=== PATIENT | female | born 2000 | race Caucasian/White ===

== ENCOUNTER 2019-10-30 07:53 | Outpatient (CLI) | payer OTHER ==
[2019-10-30 08:44] VITALS: BP 120/66; PULSE 95; RESP 16; TEMP 97.1
--- NOTE | 2019-11-02 09:45 | P.MSEPDOC ---
Presenting Problems - Arrival Data Date of Arrival on Unit: 10/30/19 Time of Arrival on Unit: 07:53 Mode of Transport: Ambulatory - Complaint OB-Reason for Admission/Chief Complaint: Rule Out PROM Medical History - Information : 1 Para: 0 Term: 0 : 0 Abortions: Spontaneous or Elective: 0 Number of Living Children: 0 - Gestational Age Gestational Age by LILIYA (wks/days): 28 Weeks and 2 Days Review of Systems - Review of Systems Constitutional: No problems Breast: No problems ENT: No problems Cardiovascular: No problems Respiratory: No problems Gastrointestinal: No problems Genitourinary: No problems Musculoskeletal: No problems Neurological: No problems Skin: No problems Vital Signs - Temperature Temperature: 97.1 F Temperature Source: Temporal Artery Scan - Pulse Right Pulse Rate: 95 Pulse Assessment Method: Automatic Cuff - Respirations Respiratory Rate: 16 Oxygen Delivery Method: Room Air O2 Sat by Pulse Oximetry: 98 - Blood Pressure Right Arm Blood Pressure: 120/66 Blood Pressure Mean: 84 Blood Pressure Source: Automatic Cuff Medical Screen Scoring (Pre) - Cervical Exam Dilation: Exam Deferred Effacement: Exam Deferred Membranes: Intact - Uterine Contractions Frequency: N/A - Maternal Vital Signs Maternal Temperature: N/A Maternal Blood Pressure: N/A Signs of Preeclampsia: N/A Maternal Respirations: N/A - Maternal Trauma Maternal Trauma: N/A - Assessment - Baby A Baseline FHR: 145 - Total Score - Baby A Total Score - Baby A: 0 - Total Score - Baby B Total Score - Baby B: 0 - Total Score - Baby C Total Score - Baby C: 0 - Level of Risk - Baby A Level of Risk - Baby A: Low (0-5) - Level of Risk - Baby B Level of Risk - Baby B: Low (0-5) - Level of Risk - Baby C Level of Risk - Baby C: Low (0-5) Physician Notification (Pre) - Physician Notified Physician Notified Date: 10/30/19 Physician Notified Time: 08:30 New Order Received: Yes - Notification Comment Comment: Once FHR displays 10x10 acels, pt may be DC home. Medical Screen Scoring (Post) - Cervical Exam Dilation: Exam Deferred Effacement: Exam Deferred Membranes: Intact - Uterine Contractions Frequency: N/A Duration: N/A Intensity: N/A - Maternal Vital Signs Maternal Temperature: N/A Signs of Preeclampsia: N/A Maternal Respirations: N/A - Pain Assessment Pain Scale Used: Numeric (1 - 10) Pain Intensity: 0 Pain Management Goal: 3 - Maternal Trauma Maternal Trauma: N/A - Assessment - Baby A Heart Rate: 140 Heart Rate - NICHD Category: Category I (Normal) = 0 NST: Reactive Position: N/A Station: N/A - Total Score Total Score - Baby A: 0 Total Score - Baby B: 0 Total Score - Baby C: 0 - Post Treatment Level of Risk Post Treatment Level of Risk - Baby A: Low (0-5) Post Treatment Level of Risk - Baby B: Low (0-5) Post Treatment Level of Risk - Baby C: Low (0-5) Disposition - Disposition OB Disposition: Discharge to home Discharge Date: 10/30/19 Discharge Time: 09:12 I agree with the RN Medical Screening Exam: Yes Risk & Benefit of care provided described in d/c instruction: Yes Diagnosis: FALSE LABOR, UNSPECIFIED
== END 2019-10-30 09:12 | disposition home or self-care (01) ==
LOC: FBPOP 07:53
PROVIDERS: ATTEND Obstetrics & Gynecology
DX: O47.03 False labor before 37 completed weeks of gestation, third trimester (principal); Z3A.28 28 weeks gestation of pregnancy
CPT/HCPCS: 84112; 99213

== ENCOUNTER 2019-12-13 11:22 | Outpatient (CLI) | payer BC, OTHER ==
[2019-12-13 13:34] VITALS: BP 127/74; PULSE 105; RESP 18; TEMP 97
--- NOTE | 2019-12-20 08:04 | P.MSEPDOC ---
Presenting Problems - Arrival Data Date of Arrival on Unit: 12/13/19 Time of Arrival on Unit: 11:30 Mode of Transport: Ambulatory - Complaint OB-Reason for Admission/Chief Complaint: Possible Onset of Labor Medical History - Information : 1 Para: 0 Term: 0 : 0 Abortions: Spontaneous or Elective: 0 Number of Living Children: 0 - Gestational Age Gestational Age by LILIYA (wks/days): 34 Weeks and 4 Days Review of Systems - Review of Systems Constitutional: No problems Breast: No problems ENT: No problems Cardiovascular: No problems Respiratory: No problems Gastrointestinal: No problems Genitourinary: No problems Musculoskeletal: No problems Neurological: No problems Skin: No problems Vital Signs - Temperature Temperature: 97.0 F Temperature Source: Temporal Artery Scan - Pulse Brachial Pulse Rate: 105 Pulse Assessment Method: Automatic Cuff - Respirations Respiratory Rate: 18 Oxygen Delivery Method: Room Air O2 Sat by Pulse Oximetry: 98 - Blood Pressure Right Arm Blood Pressure: 127/74 Blood Pressure Mean: 91 Blood Pressure Source: Automatic Cuff Medical Screen Scoring (Pre) - Cervical Exam Dilation: 0 cm = 0 Membranes: Intact - Uterine Contractions Frequency: N/A Duration: N/A Intensity: N/A - Maternal Vital Signs Maternal Temperature: N/A Maternal Blood Pressure: N/A Signs of Preeclampsia: N/A Maternal Respirations: N/A - Maternal Trauma Maternal Trauma: N/A - Assessment - Baby A Baseline FHR: 130 Heart Rate - NICHD Category: Category I (Normal) = 0 NST: Reactive Position: N/A Station: N/A - Total Score - Baby A Total Score - Baby A: 0 - Total Score - Baby B Total Score - Baby B: 0 - Total Score - Baby C Total Score - Baby C: 0 - Level of Risk - Baby A Level of Risk - Baby A: Low (0-5) - Level of Risk - Baby B Level of Risk - Baby B: Low (0-5) - Level of Risk - Baby C Level of Risk - Baby C: Low (0-5) Physician Notification (Pre) - Physician Notified Physician Notified Date: 12/13/19 Physician Notified Time: 13:30 New Order Received: Yes - Notification Comment Comment: Discharge home Physician Notification (Post) - Physician Notified Physician Notified Date: 12/13/19 Physician Notified Time: 13:30 Physician/Practitioner Notified:: Dr Gates Spoke With: Dr Gates New Order Received: Yes - Notification Comment Comment: D/C Home Disposition - Disposition OB Disposition: Discharge to home Discharge Date: 12/13/19 Discharge Time: 13:35 I agree with the RN Medical Screening Exam: Yes Risk & Benefit of care provided described in d/c instruction: Yes Diagnosis: PRIMARY INADEQUATE CONTRACTIONS
== END 2019-12-13 13:35 | disposition home or self-care (01) ==
LOC: FBPOP 11:22
PROVIDERS: ATTEND Obstetrics & Gynecology
DX: O62.0 Primary inadequate contractions (principal); Z3A.34 34 weeks gestation of pregnancy
CPT/HCPCS: 59025; 99213

== ENCOUNTER 2020-01-10 21:53 | Outpatient (CLI) | payer BC, OTHER ==
[2020-01-10 23:13] VITALS: BP 124/81; PULSE 98; RESP 16; TEMP 96.8
--- NOTE | 2020-03-28 16:14 | P.MSEPDOC ---
Presenting Problems - Arrival Data Date of Arrival on Unit: 01/10/20 Time of Arrival on Unit: 21:53 Mode of Transport: Ambulatory - Complaint OB-Reason for Admission/Chief Complaint: Rule Out SROM Comment: Physician in department, pt previously had called about c/o SROM at 1100am Medical History - Information : 1 Para: 0 Term: 0 : 0 Abortions: Spontaneous or Elective: 0 Number of Living Children: 0 - Gestational Age Gestational Age by LILIYA (wks/days): 38 Weeks and 4 Days - History Comment: none of the above Review of Systems - Review of Systems Constitutional: No problems Breast: No problems ENT: No problems Cardiovascular: No problems Respiratory: No problems Gastrointestinal: No problems Genitourinary: No problems Musculoskeletal: No problems Neurological: No problems Skin: No problems Vital Signs - Temperature Temperature: 96.8 F Temperature Source: Temporal Artery Scan - Pulse Right Supine Brachial Pulse Rate: 98 - Respirations Respiratory Rate: 16 Oxygen Delivery Method: Room Air O2 Sat by Pulse Oximetry: 98 - Blood Pressure Right Arm Supine Blood Pressure: 124/81 Blood Pressure Mean: 95 Blood Pressure Source: Automatic Cuff Medical Screen Scoring (Pre) - Cervical Exam Dilation: 1-3 cm = 1 Membranes: Intact - Uterine Contractions Frequency: > 5 minutes apart = 1 Intensity: N/A - Maternal Trauma Maternal Trauma: N/A - Assessment - Baby A Baseline FHR: 125 Heart Rate - NICHD Category: Category I (Normal) = 0 NST: Reactive Position: N/A Station: N/A - Total Score - Baby A Total Score - Baby A: 2 - Total Score - Baby B Total Score - Baby B: 2 - Total Score - Baby C Total Score - Baby C: 2 - Level of Risk - Baby A Level of Risk - Baby A: Low (0-5) - Level of Risk - Baby B Level of Risk - Baby B: Low (0-5) - Level of Risk - Baby C Level of Risk - Baby C: Low (0-5) Physician Notification (Pre) - Physician Notified Physician Notified Date: 01/10/20 Physician Notified Time: 22:32 New Order Received: Yes - Notification Comment Comment: Obtain reactive NST and discharge to home Disposition - Disposition OB Disposition: Discharge to home Discharge Date: 01/10/20 Discharge Time: 22:46 I agree with the RN Medical Screening Exam: Yes Risk & Benefit of care provided described in d/c instruction: Yes Diagnosis: FALSE LABOR AT OR AFTER 37 COMPLETED WEEKS OF GESTATION
== END 2020-01-10 22:50 | disposition home or self-care (01) ==
LOC: FBPOP 21:53
PROVIDERS: ATTEND Obstetrics & Gynecology
DX: O47.1 False labor at or after 37 completed weeks of gestation (principal); Z3A.38 38 weeks gestation of pregnancy
CPT/HCPCS: 59025; 84112; 99213

== ENCOUNTER 2020-01-16 20:35 | Outpatient (CLI) | payer BC, OTHER ==
[2020-01-16 22:12] VITALS: BP 140/65; PULSE 88; RESP 18; TEMP 97.3
--- NOTE | 2020-01-18 09:35 | P.MSEPDOC ---
Presenting Problems - Arrival Data Date of Arrival on Unit: 01/16/20 Time of Arrival on Unit: 20:35 Mode of Transport: Ambulatory - Complaint OB-Reason for Admission/Chief Complaint: Other Comment: loss of mucus plug, green discharge since 1930 Medical History - Information : 1 Para: 0 Term: 0 : 0 Abortions: Spontaneous or Elective: 0 Number of Living Children: 0 - Gestational Age Gestational Age by LILIYA (wks/days): 39 Weeks and 3 Days Review of Systems - Review of Systems Constitutional: No problems Breast: No problems ENT: No problems Cardiovascular: No problems Respiratory: No problems Gastrointestinal: No problems Genitourinary: No problems Musculoskeletal: No problems Neurological: No problems Skin: No problems Vital Signs - Temperature Temperature: 97.3 F Temperature Source: Temporal Artery Scan - Pulse Right Pulse Rate: 88 Pulse Assessment Method: Automatic Cuff - Respirations Respiratory Rate: 18 - Blood Pressure Right Arm Blood Pressure: 140/65 Blood Pressure Mean: 90 Blood Pressure Source: Automatic Cuff Medical Screen Scoring (Pre) - Cervical Exam Dilation: 1-3 cm = 1 Effacement: More than 50% = 2 Membranes: Intact - Uterine Contractions Frequency: > or = 36 weeks =2 Duration: > 40 seconds = 2 Intensity: N/A - Maternal Vital Signs Maternal Temperature: N/A Maternal Blood Pressure: N/A Signs of Preeclampsia: N/A Maternal Respirations: N/A - Maternal Trauma Maternal Trauma: N/A - Assessment - Baby A Baseline FHR: 130 Heart Rate - NICHD Category: Category I (Normal) = 0 NST: Reactive Position: N/A - Total Score - Baby A Total Score - Baby A: 7 - Total Score - Baby B Total Score - Baby B: 7 - Total Score - Baby C Total Score - Baby C: 7 - Level of Risk - Baby A Level of Risk - Baby A: Medium (6-9) - Level of Risk - Baby B Level of Risk - Baby B: Medium (6-9) - Level of Risk - Baby C Level of Risk - Baby C: Medium (6-9) Physician Notification (Pre) - Physician Notified Physician Notified Date: 01/16/20 Physician Notified Time: 21:26 - Notification Comment Comment: reviewed pts complaints, reactive fhts, cntrx pattern, SVE, vitals. no s/sx of SROM, no green discharge noted Disposition - Disposition OB Disposition: Discharge to home Discharge Date: 01/16/20 Discharge Time: 21:00 I agree with the RN Medical Screening Exam: Yes Risk & Benefit of care provided described in d/c instruction: Yes Diagnosis: RELATED CONDITIONS, UNSPECIFIED, THIRD TRIMESTER (?SROM)
== END 2020-01-16 21:50 | disposition home or self-care (01) ==
LOC: FBPOP 20:35
PROVIDERS: ATTEND Obstetrics & Gynecology
DX: O26.93 Pregnancy related conditions, unspecified, third trimester (principal); Z3A.39 39 weeks gestation of pregnancy
CPT/HCPCS: 59025; 99213

== ENCOUNTER 2020-01-17 16:25 | Outpatient (CLI) | payer BC, OTHER ==
[2020-01-17 18:28] VITALS: BP 124/74; PULSE 98; RESP 16; TEMP 98.8
--- NOTE | 2020-01-22 07:40 | P.MSEPDOC ---
Presenting Problems - Arrival Data Date of Arrival on Unit: 01/17/20 Time of Arrival on Unit: 16:25 Mode of Transport: Ambulatory - Complaint OB-Reason for Admission/Chief Complaint: Other Comment: pt arrived c/o palpations Medical History - Information : 1 Para: 0 Term: 0 : 0 Abortions: Spontaneous or Elective: 0 Number of Living Children: 0 - Gestational Age Gestational Age by LILIYA (wks/days): 39 Weeks and 4 Days Review of Systems - Review of Systems Constitutional: No problems Breast: No problems ENT: No problems Cardiovascular: No problems Respiratory: No problems Gastrointestinal: No problems Genitourinary: No problems Musculoskeletal: No problems Neurological: No problems Skin: No problems Vital Signs - Temperature Temperature: 98.8 F Temperature Source: Oral - Pulse Right Brachial Pulse Rate: 98 Pulse Assessment Method: Automatic Cuff - Respirations Respiratory Rate: 16 Oxygen Delivery Method: Room Air O2 Sat by Pulse Oximetry: 97 - Blood Pressure Right Arm Blood Pressure: 124/74 Blood Pressure Mean: 90 Blood Pressure Source: Automatic Cuff Medical Screen Scoring (Pre) - Cervical Exam Dilation: Exam Deferred Effacement: Exam Deferred Membranes: Intact - Uterine Contractions Frequency: > 5 minutes apart = 1 Duration: N/A Intensity: N/A - Maternal Vital Signs Maternal Temperature: N/A Maternal Blood Pressure: N/A Signs of Preeclampsia: N/A Maternal Respirations: N/A - Maternal Trauma Maternal Trauma: N/A - Assessment - Baby A Baseline FHR: 130 Heart Rate - NICHD Category: Category I (Normal) = 0 NST: Reactive Position: N/A - Total Score - Baby A Total Score - Baby A: 1 - Total Score - Baby B Total Score - Baby B: 1 - Total Score - Baby C Total Score - Baby C: 1 - Level of Risk - Baby A Level of Risk - Baby A: Low (0-5) - Level of Risk - Baby B Level of Risk - Baby B: Low (0-5) - Level of Risk - Baby C Level of Risk - Baby C: Low (0-5) Physician Notification (Pre) - Physician Notified Physician Notified Date: 01/17/20 Physician Notified Time: 17:50 New Order Received: Yes - Notification Comment Comment: pts vitals wnl reactive NST pt denies having any palpations while she was here. pulse ox 97% and regular. dr vega at bedside viewed strips and talked to pt. pt to return to L/D wednesday01/19/20 for a 6 am scheduled induction Disposition - Disposition OB Disposition: Discharge to home Discharge Date: 01/17/20 Discharge Time: 18:25 I agree with the RN Medical Screening Exam: Yes Risk & Benefit of care provided described in d/c instruction: Yes Diagnosis: PRIMARY INADEQUATE CONTRACTIONS
== END 2020-01-17 18:25 | disposition home or self-care (01) ==
LOC: FBPOP 16:25
PROVIDERS: ATTEND Obstetrics & Gynecology
DX: O62.9 Abnormality of forces of labor, unspecified (principal); Z3A.39 39 weeks gestation of pregnancy
CPT/HCPCS: 59025; 99213

== ENCOUNTER 2020-01-19 05:55 | Inpatient (IN) | payer BC, OTHER ==
[2020-01-19] MEDS ORDERED: LIDOCAINE 0.5% (PF) 5 MG/ML (50 ML SDV) SQ PRN (06:14)
[2020-01-19] MEDS ORDERED: TERBUTALINE 1 MG/ML VIAL SQ PRN (06:14)
[2020-01-19] MEDS ORDERED: OXYTOCIN 10 UNIT/ML 1 ML VIAL IM PRN (06:14)
[2020-01-19] MEDS ORDERED: METHYLERGONOVINE 0.2 MG/ML 1 ML AMP IM PRN (06:14)
[2020-01-19] MEDS ORDERED: CARBOPROST TROMETHAMINE 250 MCG/ML 1 ML AMP IM PRN (06:14)
[2020-01-19] MEDS ORDERED: OXYTOCIN 30 UNITS/500 ML NS 30 UNIT in SALINE 1 500ML.BAG IV SCH (06:15)
[2020-01-19 07:10] LABS: Anisocytosis Slight; Basophils # (A) 0.1 k/uL (0-0.2); Basophils % (A) 0 %; Eosinophils # (A) 0.2 k/uL (0-0.7); Eosinophils % (A) 2 %; HCT 38.8 % (34.0-46.0); HGB 12.5 gm/dL (11.4-16.0); Lymphocytes # (A) 2.6 k/uL (1.0-4.8); Lymphocytes % (A) 19 %; MCH 26.6 pg (25.0-35.0); MCHC 32.3 g/dL (31.0-37.0); MCV 82.3 fL (80.0-100.0); Mean Platelet Volume 7.8; Monocytes # (A) 0.5 k/uL (0-1.0); Monocytes % (A) 4 %; Neutrophils # (A) 10.2 k/uL (1.3-7.7); Neutrophils % (A) 74 %; Platelet Count 249 k/uL (150-450); RBC 4.71 m/uL (3.80-5.40); RDW 16.9 % (11.5-15.5); WBC 13.7 k/uL (4.0-11.0)
[2020-01-19] MEDS: LACTATED RINGERS 1,000 ML IV SCH (07:16)
[2020-01-19] MEDS ORDERED: fentaNYL (PF) 50 MCG/ML 5 ML AMP ONE (11:02)
[2020-01-19] MEDS ORDERED: SODIUM CHLORIDE 0.9% 100 ML BAG ONE (11:02)
[2020-01-19] MEDS ORDERED: ROPIVACAINE 5MG/ML 20ML VIAL ONE (11:02)
[2020-01-19] MEDS ORDERED: diphenhydrAMINE 50 MG/ML 1 ML VIAL IVP PRN ×2 (14:28)
[2020-01-19] MEDS ORDERED: LANOLIN CREAM 5 GM TUBE TOPICAL PRN (14:28)
[2020-01-19] MEDS ORDERED: ACETAMINOPHEN TAB 325 MG TAB PO PRN (14:28)
[2020-01-19] MEDS ORDERED: diphenhydrAMINE 25 MG CAP PO PRN (14:28)
[2020-01-19] MEDS ORDERED: HYDROCORTISONE 2.5% RECTAL CREAM 30 GM TUBE RECTAL PRN (14:28)
[2020-01-19] MEDS ORDERED: SIMETHICONE 80 MG CHEWABLE PO PRN (14:28)
[2020-01-19] MEDS ORDERED: BENZOCAINE/MENTHOL SPRAY 1 GM/SPRAY AEROSOL TOPICAL PRN (14:28)
[2020-01-19] MEDS ORDERED: diphenhydrAMINE 50 MG CAP PO PRN (14:28)
[2020-01-19] MEDS ORDERED: ZOLPIDEM 5 MG TAB PO PRN (14:28)
[2020-01-19] MEDS ORDERED: OXYTOCIN 20 UNITS/1000 ML NS 1,000 ML IV SCH (14:30)
[2020-01-19] MEDS: IBUPROFEN 600 MG TAB PO PRN ×2 (16:53→23:37)
[2020-01-19] MEDS: SENNOSIDES-DOCUSATE SODIUM 1 EACH TAB PO SCH (19:33)
[2020-01-20] MEDS: LACTATED RINGERS 1,000 ML IV SCH (05:38)
[2020-01-20] MEDS: IBUPROFEN 600 MG TAB PO PRN ×2 (06:08→12:23)
[2020-01-20] MEDS: SENNOSIDES-DOCUSATE SODIUM 1 EACH TAB PO SCH (07:53)
[2020-01-20 08:15] LABS: Anisocytosis Slight; Basophils % (A) 0 %; Eosinophils # (A) 0.2 k/uL (0-0.7); Eosinophils % (A) 1 %; HCT 33.6 % (34.0-46.0); HGB 11.2 gm/dL (11.4-16.0); Lymphocytes # (A) 2.9 k/uL (1.0-4.8); Lymphocytes % (A) 18 %; MCH 27.2 pg (25.0-35.0); MCHC 33.3 g/dL (31.0-37.0); MCV 81.5 fL (80.0-100.0); Mean Platelet Volume 8.7; Monocytes # (A) 0.7 k/uL (0-1.0); Monocytes % (A) 4 %; Neutrophils # (A) 12.6 k/uL (1.3-7.7); Neutrophils % (A) 76 %; Platelet Count 225 k/uL (150-450); RBC 4.12 m/uL (3.80-5.40); RDW 17.1 % (11.5-15.5); WBC 16.6 k/uL (4.0-11.0)
[2020-01-20 08:39] VITALS: BP 107/64; PULSE 83; RESP 16; TEMP 98.7
--- NOTE | 2020-01-20 10:19 | P.HPOB ---
History of Present Illness H&P Date: 01/19/20 Chief Complaint: Induction of labor 19-year-old presents at 39 weeks and 6 days for induction of labor. Her cervix is 3 cm dilated, 70% effaced, and -2 station. She is junior irregularly. heart tones 135 with moderate variability and reactive. Review of Systems All systems: negative Constitutional: Denies chills, Denies fever Eyes: denies blurred vision, denies pain Ears, nose, mouth and throat: Denies headache, Denies sore throat Cardiovascular: Denies chest pain, Denies shortness of breath Respiratory: Denies cough Gastrointestinal: Denies abdominal pain, Denies diarrhea, Denies nausea, Denies vomiting Genitourinary: Denies dysuria, Denies hematuria Musculoskeletal: Denies myalgias Integumentary: Denies pruritus, Denies rash Neurological: Denies numbness, Denies weakness Psychiatric: Denies anxiety, Denies depression Endocrine: Denies fatigue, Denies weight change Past Medical History Past Medical History: No Reported History Additional Past Medical History / Comment(s): Obstetric history: This is her first she had care with me since the first trimester. Blood type is O+, and because negative, rubella immune, hepatitis B negative, RPR nonreactive, GBS negative. History of Any Multi-Drug Resistant Organisms: None Reported Past Surgical History: No Surgical Hx Reported Past Psychological History: No Psychological Hx Reported Smoking Status: Never smoker Past Alcohol Use History: None Reported Past Drug Use History: None Reported Medications and Allergies Home Medications Medication Instructions Recorded Confirmed Type Iron 1 tab PO DAILY 10/30/19 01/19/20 History Pnv,Calcium 72/Iron/Folic Acid 1 tab PO DAILY 10/30/19 01/19/20 History [ Plus Tablet] Allergies Allergy/AdvReac Type Severity Reaction Status Date / Time strawberry Allergy Rash/Hives Verified 01/19/20 06:13 Exam Osteopathic Statement: *. No significant issues noted on an osteopathic structural exam other than those noted in the History and Physical/Consult. Vital Signs Temp Pulse Resp BP Pulse Ox 01/20/20 08:00 98.7 F 83 16 107/64 01/20/20 04:00 98.0 F 84 18 132/81 95 01/20/20 00:00 98.5 F 94 16 133/81 97 01/19/20 20:00 98.0 F 102 H 18 124/93 96 01/19/20 17:25 118 H 18 124/75 97 01/19/20 15:36 98.4 F 96 14 117/62 01/19/20 15:05 98.0 F 103 H 16 130/63 01/19/20 14:36 97.8 F 107 H 16 112/61 01/19/20 14:21 125 H 16 112/63 01/19/20 14:06 117 H 16 109/61 01/19/20 13:51 115 H 16 135/65 01/19/20 13:36 96.8 F L 121 H 16 119/56 Intake and Output 01/19/20 01/20/20 01/20/20 22:59 06:59 14:59 Other: # Voids 1 1 1 Heart: Regular rate and rhythm Lungs: Clear to auscultation bilaterally Abdomen: Soft, nontender Extremities: Negative Homans sign Results Result Diagrams: 01/20/20 06:57 Abnormal Lab Results - Last 24 Hours (Table) 01/20/20 Range/Units 06:57 WBC 16.6 H (4.0-11.0) k/uL Hgb 11.2 L (11.4-16.0) gm/dL Hct 33.6 L (34.0-46.0) % RDW 17.1 H (11.5-15.5) % Neutrophils # 12.6 H (1.3-7.7) k/uL Assessment and Plan (1) Normal labor Current Visit: Yes Status: Acute Code(s): O80 - ENCOUNTER FOR FULL-TERM UNCOMPLICATED DELIVERY; Z37.9 - OUTCOME OF DELIVERY, UNSPECIFIED SNOMED Code(s): 78299069 Plan: 1. Induction of labor with amniotomy and Pitocin 2. Anticipate normal vaginal delivery
--- NOTE | 2020-01-20 10:20 | P.PROBDLV ---
Vaginal Delivery Note - . Vaginal Delivery Note: 19-year-old presents at 39 weeks and 6 days for induction of labor. Her cervix is 3 cm dilated, 70% effaced, and -2 station. She is junior irregularly. heart tones 135 with moderate variability and reactive. Pitocin was started. Amniotomy performed at 7:02 AM and clear fluid noted. When she was uncomfortable she had an epidural. Her cervix is completely dilated at 1313. She pushed, delivered viable female infant over intact perineum under epidural anesthesia at 1515. Head delivered OA, anterior shoulder delivered gentle downward guidance followed by posterior shoulder and rest of body. Nose and mouth bulb suctioned, cord clamped and cut, infant placed on mother's abdomen. Apgars 9, 9, weight 6 pounds. Placenta delivered spontaneously, intact with three-vessel cord at 1317. Vagina, cervix, and perineum were inspected. First-degree left lateral laceration and a right labial laceration were repaired with 3-0 Vicryl. Estimated blood loss 390 mL. Mother and baby in stable condition.
--- NOTE | 2020-01-20 10:22 | P.DS ---
Providers Date of admission: 01/19/20 05:55 Expected date of discharge: 01/20/20 Attending physician: Mariana Gates Primary care physician: Stated None - Discharge Diagnosis(es) (1) Normal labor Current Visit: Yes Status: Resolved (2) Normal vaginal delivery Current Visit: Yes Status: Acute Hospital Course: Patient presented for induction of labor. She underwent a normal vaginal delivery. Her course was uncomplicated. She'll be discharged home day #1 in stable condition follow-up with me in 6 weeks. Patient Condition at Discharge: Stable Plan - Discharge Summary New Discharge Prescriptions: New Ibuprofen [Motrin] 600 mg PO Q6HR PRN #30 tab PRN Reason: Mild Pain Or Fever >= 100.5 No Action Pnv,Calcium 72/Iron/Folic Acid [ Plus Tablet] 1 tab PO DAILY Iron 1 tab PO DAILY Discharge Medication List Iron 1 tab PO DAILY 10/30/19 [History] Pnv,Calcium 72/Iron/Folic Acid [ Plus Tablet] 1 tab PO DAILY 10/30/19 [History] Ibuprofen [Motrin] 600 mg PO Q6HR PRN #30 tab 01/20/20 [Rx] Follow up Appointment(s)/Referral(s): Mariana Gates DO [Doctor of Osteopathic Medicine] - 6 Weeks Discharge Disposition: HOME SELF-CARE
== END 2020-01-20 14:30 | disposition home or self-care (01) | DRG 807 ==
LOC: 4FBP 05:55
PROVIDERS: ADMIT Obstetrics & Gynecology; ATTEND Obstetrics & Gynecology
PROC: 3E033VJ Introduction of Other Hormone into Peripheral Vein, Percutaneous Approach (ICD-10-PCS; 2020-01-19)
PROC: 3E0R3BZ Introduction of Anesthetic Agent into Spinal Canal, Percutaneous Approach (ICD-10-PCS; 2020-01-19)
PROC: 10E0XZZ Delivery of Products of Conception, External Approach (ICD-10-PCS; principal; 2020-01-20)
PROC: 10907ZC Drainage of Amniotic Fluid, Therapeutic from Products of Conception, Via Natural or Artificial Opening (ICD-10-PCS; 2020-01-20)
PROC: 0HQ9XZZ Repair Perineum Skin, External Approach (ICD-10-PCS; 2020-01-20)
DX: O70.0 First degree perineal laceration during delivery (principal); Z37.0 Single live birth; Z3A.39 39 weeks gestation of pregnancy; Z79.899 Other long term (current) drug therapy; Z82.49 Family history of ischemic heart disease and other diseases of the circulatory system; Z83.3 Family history of diabetes mellitus; Z80.3 Family history of malignant neoplasm of breast; Z80.8 Family history of malignant neoplasm of other organs or systems
CPT/HCPCS: 85025; 86850; 86900; 86901

== ENCOUNTER 2020-01-26 20:06 | Emergency (ER) | payer BC, OTHER ==
[2020-01-26 20:12] VITALS: TEMP 98
[2020-01-26] MEDS ORDERED: SODIUM CHLORIDE 0.9% 1,000 ML IV ONE (20:26)
[2020-01-26] MEDS ORDERED: KETOROLAC 15 MG/ML 1 ML VIAL IVP STA (20:26)
--- NOTE | 2020-01-26 20:38 | ED ---
General Adult HPI <Tony Villalpando - Last Filed: 01/26/20 22:17> - General Source: patient, family Limitations: no limitations <Radha Maya - Last Filed: 01/26/20 23:53> - General Chief complaint: Headache Stated complaint: Headache Time Seen by Provider: 01/26/20 20:13 - History of Present Illness Initial comments: 19-year-old female presents to the emergency department tonight with complaints of headache that she describes as pressure between the temples, intermittently times one week, worsening this evening. Denies any visual changes, nausea, vomiting, or exacerbating or relieving factors. Reports feeling off balance today. Patient states she is one week . Reports she had a routine and uncomplicated spontaneous vaginal delivery with epidural. Patient denies any recent rash, fever, chills, cough, shortness of breath, chest pain, abdominal pain, diarrhea, constipation, numbness, tingling, dizziness, weakness, hematuria, dysuria, urinary urgency, urinary frequency, or any other complaints. (Radha Maya) - Related Data Home Medications Medication Instructions Recorded Confirmed Pnv,Calcium 72/Iron/Folic Acid 1 tab PO DAILY 10/30/19 01/26/20 [ Plus Tablet] Ferrous Sulfate [Feosol] 325 mg PO DAILY 01/26/20 01/26/20 Previous Rx's Medication Instructions Recorded Ibuprofen [Motrin] 600 mg PO Q6HR PRN #30 tab 01/20/20 Allergies Allergy/AdvReac Type Severity Reaction Status Date / Time strawberry Allergy Rash/Hives Verified 01/26/20 21:12 Review of Systems ROS Other: All systems not noted in ROS Statement are negative. <Tony Villalpando - Last Filed: 01/26/20 22:17> ROS Other: All systems not noted in ROS Statement are negative. <Radha Maya - Last Filed: 01/26/20 23:53> ROS Statement: Those systems with pertinent positive or pertinent negative responses have been documented in the HPI. Past Medical History Past Medical History: No Reported History Additional Past Medical History / Comment(s): Obstetric history: This is her f irst she had care with me since the first trimester. Blood type is O+, and because negative, rubella immune, hepatitis B negative, RPR nonreactive, GBS negative. History of Any Multi-Drug Resistant Organisms: None Reported Past Surgical History: No Surgical Hx Reported Past Psychological History: No Psychological Hx Reported Smoking Status: Never smoker Past Alcohol Use History: None Reported Past Drug Use History: None Reported <Radha Maya M - Last Filed: 01/26/20 23:53> General Exam Limitations: no limitations General appearance: alert, in no apparent distress Head exam: Present: atraumatic, normocephalic, normal inspection Eye exam: Present: normal appearance, PERRL, EOMI. Absent: scleral icterus, conjunctival injection, periorbital swelling ENT exam: Present: normal exam, mucous membranes moist Respiratory exam: Present: normal lung sounds bilaterally. Absent: respiratory distress, wheezes, rales, rhonchi, stridor Cardiovascular Exam: Present: normal rhythm, tachycardia, normal heart sounds. Absent: systolic murmur, diastolic murmur, rubs, gallop, clicks GI/Abdominal exam: Present: soft, normal bowel sounds. Absent: distended, tenderness, guarding, rebound, rigid Back exam: Present: normal inspection Neurological exam: Present: alert, oriented X3, CN II-XII intact Expanded Patient oriented to: Present: person, place, time Speech: Present: fluid speech Cranial nerves: EOM's Intact: Normal Motor strength exam: RUE: 5, LUE: 5, RLE: 5, LLE: 5 Eye Response: (4) open spontaneously Motor Response: (6) obeys commands Verbal Response: (5) oriented Psychiatric exam: Present: normal affect, normal mood Skin exam: Present: warm, dry, intact, normal color. Absent: rash <Radha Maya M - Last Filed: 01/26/20 23:53> Course Vital Signs 01/26/20 01/26/20 01/26/20 20:09 21:29 23:27 Temperature 98.0 F Pulse Rate 105 H 87 86 Respiratory 16 16 18 Rate Blood Pressure 142/86 142/95 138/92 O2 Sat by Pulse 98 100 98 Oximetry Medical Decision Making - Lab Data Result diagrams: 01/26/20 20:58 01/26/20 20:58 <Tony Villalpando - Last Filed: 01/26/20 22:17> - Lab Data Result diagrams: 01/26/20 20:58 01/26/20 20:58 - Radiology Data Radiology results: report reviewed, image reviewed <Radha Maya M - Last Filed: 01/26/20 23:53> - Medical Decision Making Patient was seen along with physician assistant statistician Nessa Maya. Patient is 19-year-old female she is 1 week presents with a headache. She reports that the headache is to her bifrontal region. She called [facility] and spoke with Dr. Cochran. Dr. Urrutia that she come to the emergency department. Patient's blood pressure when she arrived was 142/86. She was mildly tachycardic at 105, rest of vital signs within acceptable limits. Laboratory evaluation obtained. Patient has no elevation in her liver enzymes. She has mild leukocytosis of 15.0. Sightly secondary to stress. She does have 1+ proteinuria. She has greater than 182 red blood cells and greater than 182 white blood cells in the urine. Patient case was discussed with Dr. Cochran. He does not believe that patient's clinical presentation is consistent with preeclampsia. He goes on to say that patient's headache is likely from epidural. Patient be ordered for CT venogram to rule out venous sinus thrombos is. We also will monitor patient's blood pressures here in the emergency department. (Tony Villalpando) 19-year-old female patient presented to the emergency department today for evaluation of intermittent headache for the last week. Patient is reporting a pressure type headache to the frontal region. Physical examination was unremarkable. She is neurologically intact with no focal deficits. Labs reviewed and were unremarkable other than mild leukocytosis which is most likely reactive. Blood pressures were around the 140s over 80s to 90s on the department. She had no concerning laboratory findings are preeclampsia. As the patient is one week we did contact the [employer] [employer]PRES[employer] Dr. Urrutia and discussed the case with him. He is not concerned for preeclampsia at this time. He was concerned the patient's headache may be from the epidural so we did discuss the case with Dr. Garcia from Anesthesia who does not believe the reported symptoms are from the epidural and will not be performing a blood patch at this time. CT of the brain with contrast was obtained, shows no evidence for abnormalities or signs of venous sinus thrombosis. Upon reevaluation nayely gonzáles is resting comfortably in bed. Her symptoms are completely resolved. Blood pressure is now in the 130s over 80s. Patient will be discharged to follow-up with the [facility] [facility] for recheck in 1-2 days. Return parameters were discussed in detail. She verbalizes understanding and agrees with this plan. (Radha Maya) - Lab Data Lab Results 01/26/20 01/26/20 01/26/20 Range/Units 20:58 20:58 20:58 WBC 15.0 H (4.0-11.0) k/uL RBC 4.70 (3.80-5.40) m/uL Hgb 12.5 (11.4-16.0) gm/dL Hct 39.1 (34.0-46.0) % MCV 83.3 (80.0-100.0) fL MCH 26.7 (25.0-35.0) pg MCHC 32.0 (31.0-37.0) g/dL RDW 15.8 H (11.5-15.5) % Plt Count 362 (150-450) k/uL Neutrophils % 73 % Lymphocytes % 19 % Monocytes % 4 % Eosinophils % 2 % Basophils % 0 % Neutrophils # 11.0 H (1.3-7.7) k/uL Lymphocytes # 2.9 (1.0-4.8) k/uL Monocytes # 0.6 (0-1.0) k/uL Eosinophils # 0.4 (0-0.7) k/uL Basophils # 0.0 (0-0.2) k/uL Sodium 136 L (137-145) mmol/L Potassium 4.2 (3.5-5.1) mmol/L Chloride 106 (98-107) mmol/L Carbon Dioxide 23 (22-30) mmol/L Anion Gap 7 mmol/L BUN 9 (7-17) mg/dL Creatinine 0.62 (0.52-1.04) mg/dL Est GFR (CKD-EPI)AfAm >90 (>60 ml/min/1.73 sqM) Est GFR (CKD-EPI)NonAf >90 (>60 ml/min/1.73 sqM) Glucose 104 H (74-99) mg/dL Uric Acid 6.2 (3.7-7.4) mg/dL Calcium 9.6 (8.4-10.2) mg/dL Total Bilirubin 0.3 (0.2-1.3) mg/dL AST 16 (14-36) U/L ALT 12 (4-34) U/L Alkaline Phosphatase 111 (38-126) U/L Lactate Dehydrogenase 473 (313-618) U/L Total Protein 6.6 (6.3-8.2) g/dL Albumin 3.8 (3.5-5.0) g/dL Urine Color Yellow Urine Appearance Turbid H (Clear) Urine pH 6.0 (5.0-8.0) Ur Specific [place] 1.018 (1.001-1.035) Urine Protein 1+ H (Negative) Urine Glucose (UA) Negative (Negative) Urine Ketones Negative (Negative) Urine Blood Large H (Negative) Urine Nitrite Negative (Negative) Urine Bilirubin Negative (Negative) Urine Urobilinogen <2.0 (<2.0) mg/dL Ur Leukocyte Esterase Large H (Negative) Urine RBC >182 H (0-5) /hpf Urine WBC >182 H (0-5) /hpf Urine WBC Clumps Occasional H (None) /hpf Ur Squamous Epith Cells 11 H (0-4) /hpf Urine Mucus Occasional H (None) /hpf - Radiology Data CT brain with contrast was obtained. Report was reviewed in its entirety. Impression by Dr. Noguera shows negative computed tomography scan of the brain with contrast. No evidence of venous sinus thrombosis. (Radha Maya) Disposition <Tony Villalpando - Last Filed: 01/26/20 22:17> Is patient prescribed a controlled substance at d/c from ED?: No Time of Disposition: 23:42 <Radha Maya - Last Filed: 01/26/20 23:53> Clinical Impression: Headache, Elevated blood pressure, situational Disposition: HOME SELF-CARE Condition: Good Instructions (If sedation given, give patient instructions): Acute Headache (ED), Hypertension (ED) Additional Instructions: Increase fluids. Rest. Take Tylenol and Motrin for pain control. Follow-up with your [employer] [employer]ENT[facility]IVE for recheck as soon as possible. Keep a log of your blood pressures to take to the appointment. Return to the emergency department immediately for any new, worsening, or concerning symptoms. Referrals: None,Stated [Primary Care Provider] - 1-2 days
[2020-01-26 21:07] LABS: Basophils % (A) 0 %; Eosinophils # (A) 0.4 k/uL (0-0.7); Eosinophils % (A) 2 %; HCT 39.1 % (34.0-46.0); HGB 12.5 gm/dL (11.4-16.0); Lymphocytes # (A) 2.9 k/uL (1.0-4.8); Lymphocytes % (A) 19 %; MCH 26.7 pg (25.0-35.0); MCV 83.3 fL (80.0-100.0); Mean Platelet Volume 7.3; Monocytes # (A) 0.6 k/uL (0-1.0); Monocytes % (A) 4 %; Neutrophils % (A) 73 %; Platelet Count 362 k/uL (150-450); RDW 15.8 % (11.5-15.5)
[2020-01-26 21:14] LABS: Appearance,Urine Turbid (Clear); Bilirubin,Urine Negative (Negative); Blood,Urine Large (Negative); Color,Urine Yellow; Glucose,Urine (UA) Negative (Negative); Ketones,Urine Negative (Negative); Leukocyte Esterase,Urine Large (Negative); Mucus,Urine Occasional /hpf; Nitrite,Urine Negative (Negative); Protein,Urine 1+ (Negative); RBC,Urine >182 /hpf (0-5); Specific Gravity,Urine 1.018 (1.001-1.035); Squamous Epithelial Cell,Urine 11 /hpf (0-4); Urobilinogen,Urine <2.0 mg/dL (<2.0); WBC,Urine >182 /hpf (0-5)
[2020-01-26 21:23] LABS: ALT 12 U/L (4-34); AST 16 U/L (14-36); African American GFR (CKD) >90 (>60 ml/min/1.73 sqM); Albumin 3.8 g/dL (3.5-5.0); Alkaline Phosphatase 111 U/L (38-126); Anion Gap 7 mmol/L; Blood Urea Nitrogen 9 mg/dL (7-17); Calcium 9.6 mg/dL (8.4-10.2); Carbon Dioxide 23 mmol/L (22-30); Chloride 106 mmol/L (98-107); Glucose 104 mg/dL (74-99); LDH 473 U/L (313-618); Non-African American GFR(CKD) >90 (>60 ml/min/1.73 sqM); Potassium 4.2 mmol/L (3.5-5.1); Sodium 136 mmol/L (137-145); Total Bilirubin 0.3 mg/dL (0.2-1.3); Total Protein 6.6 g/dL (6.3-8.2); Uric Acid 6.2 mg/dL (3.7-7.4)
[2020-01-26] MEDS ORDERED: RX INFO: IV CONTRAST WAS GIVEN 1 EACH MISC MISCELLANE PRN (22:01)
--- NOTE | 2020-01-26 23:18 | CT ---
EXAMINATION TYPE: CT brain w con DATE OF EXAM: 01/26/2020 COMPARISON: None HISTORY: Headache, post x1 week. Venogram. CT DLP: 1084.4 mGycm Automated exposure control for dose reduction was used. CONTRAST: Performed with IV Contrast, patient injected with 100ml mL of Isovue 300. Ventricles and sulci appear normal. There is no mass effect nor midline shift. There is no sign of in tracranial hemorrhage. There is normal contrast opacification of the venous sinuses. There is no path ologic enhancement. Calvarium is intact. There is no evidence of cerebral edema. IMPRESSION: Negative CT scan of the brain with contrast. No evidence of venous sinus thrombosis.
[2020-01-26 23:30] VITALS: BP 138/92; PULSE 86; RESP 18
== END 2020-01-26 23:57 | disposition home or self-care (01) ==
LOC: EC 20:06
DX: R51 Headache (principal); R03.0 Elevated blood-pressure reading, without diagnosis of hypertension; R00.0 Tachycardia, unspecified; D72.829 Elevated white blood cell count, unspecified; F43.9 Reaction to severe stress, unspecified; R80.9 Proteinuria, unspecified; R31.9 Hematuria, unspecified; Z91.018 Allergy to other foods; Z79.899 Other long term (current) drug therapy
CPT/HCPCS: 36415; 80053; 83615; 84550; 85025; 81001; 87086; 70460; 99284; 96374; 96361 ×2; J1885; Q9967

== ENCOUNTER 2020-03-13 20:19 | Emergency (ER) | payer BC, OTHER ==
[2020-03-13 20:25] VITALS: PULSE 72; RESP 18
[2020-03-13 21:17] LABS: Basophils % (A) 0 %; Eosinophils # (A) 0.1 k/uL (0-0.7); Eosinophils % (A) 1 %; HCT 44.7 % (34.0-46.0); HGB 14.4 gm/dL (11.4-16.0); Lymphocytes % (A) 14 %; MCHC 32.3 g/dL (31.0-37.0); MCV 80.5 fL (80.0-100.0); Mean Platelet Volume 6.9; Monocytes # (A) 0.5 k/uL (0-1.0); Monocytes % (A) 4 %; Neutrophils % (A) 81 %; Platelet Count 421 k/uL (150-450); RBC 5.56 m/uL (3.80-5.40); WBC 14.8 k/uL (3.8-10.6)
[2020-03-13 21:28] LABS: ALT 20 U/L (4-34); AST 19 U/L (14-36); African American GFR (CKD) >90 (>60 ml/min/1.73 sqM); Albumin 4.7 g/dL (3.5-5.0); Alkaline Phosphatase 101 U/L (38-126); Anion Gap 8 mmol/L; Blood Urea Nitrogen 12 mg/dL (7-17); Calcium 10.1 mg/dL (8.4-10.2); Carbon Dioxide 25 mmol/L (22-30); Chloride 105 mmol/L (98-107); Glucose 121 mg/dL (74-99); Non-African American GFR(CKD) >90 (>60 ml/min/1.73 sqM); Potassium 4.5 mmol/L (3.5-5.1); Sodium 138 mmol/L (137-145); Total Bilirubin 0.5 mg/dL (0.2-1.3); Total Protein 7.7 g/dL (6.3-8.2)
--- NOTE | 2020-03-13 21:32 | XR ---
EXAMINATION TYPE: XR chest 2V DATE OF EXAM: 03/13/2020 COMPARISON: 11/15/2014 HISTORY: Short of breath TECHNIQUE: 2 views FINDINGS: Heart and mediastinum are normal. Lungs are clear. Diaphragm is normal. Bony thorax appears normal. IMPRESSION: Normal chest. No change.
--- NOTE | 2020-03-13 21:37 | ED ---
General Adult HPI - General Chief complaint: Chest Pain Stated complaint: Chest tightness, sent by [employer] [facility] for bloodwork Time Seen by Provider: 03/13/20 20:33 Source: patient Mode of arrival: ambulatory Limitations: no limitations - History of Present Illness Initial comments: Patient is a 20-year-old female presenting to the emergency Department with complaints of chest tightness that has been continuing for the last 3-4 days. Patient states she has been to urgent care twice in the past 2 weeks for sinus drainage and congestion. She was placed on antibiotic as well as steroids. Patient states she has chest tightness that restarted again today and went back to the urgent care who then sent her into the ER to rule out a possible blood clot. Patient is 8 weeks , normal vaginal delivery, no complications. She also just had an IUD placed 1 week ago and is fearful of a blood clot. Patient denies any chest pains, shortness of breath. She states she does still have a very mild cough but that has improving with her medications. She also still has a little bit of nasal drainage but no congestion and overall feels improvement. She denies history of blood clots, denies any injuries to her lower legs or pain in her lower legs. He fever, chills. She has no further complaints at this time. Upon arrival to the ER, her vital signs are stable. - Related Data Home Medications Medication Instructions Recorded Confirmed Pnv,Calcium 72/Iron/Folic Acid 1 tab PO DAILY 10/30/19 03/13/20 [ Plus Tablet] Amoxic-Pot Clav 875-125Mg 1 tab PO BID 03/13/20 03/13/20 [Augmentin 875-125] Citalopram Hydrobromide 20 mg PO DAILY 03/13/20 03/13/20 [Citalopram HBr] Fluticasone Nasal [place] [Flonase 2 spr EA NOSTRIL DAILY PRN 03/13/20 03/13/20 Nasal [place]] predniSONE 30 mg PO BID 03/13/20 03/13/20 Previous Rx's Medication Instructions Recorded Albuterol Inhaler [Ventolin Hfa 1 puff INHALATION Q4H PRN #1 puff 03/13/20 Inhaler] Allergies Allergy/AdvReac Type Severity Reaction Status Date / Time strawberry Allergy Rash/Hives Verified 03/13/20 21:19 Review of Systems ROS Statement: Those systems with pertinent positive or pertinent negative responses have been documented in the HPI. ROS Other: All systems not noted in ROS Statement are negative. Past Medical History Past Medical History: No Reported History Additional Past Medical History / Comment(s): Obstetric history: This is her first she had care with me since the first trimester. Blood type is O+, and because negative, rubella immune, hepatitis B negative, RPR nonreactive, GBS negative. History of Any Multi-Drug Resistant Organisms: None Reported Past Surgical History: No Surgical Hx Reported Past Psychological History: No Psychological Hx Reported Smoking Status: Never smoker Past Alcohol Use History: None Reported Past Drug Use History: None Reported General Exam - General Exam Comments Initial Comments: GENERAL: Patient is well-developed and well-nourished. Patient is nontoxic and in no acute distress. HEAD: Atraumatic, normocephalic. EYES: Pupils equal round and reactive to light, extraocular movements intact, sclera anicteric, conjunctiva are normal. Eyelids were unremarkable. ENT: TMs normal, nares patent, oropharynx clear without exudates. Moist mucous membranes. NECK: Normal range of motion, supple without lymphadenopathy or JVD. LUNGS: Unlabored respirations. Breath sounds clear to auscultation bilaterally and equal. No wheezes rales or rhonchi. HEART: Regular rate and rhythm without murmurs, rubs or gallops. ABDOMEN: Soft, nontender, normoactive bowel sounds. No guarding, no rebound. No masses appreciated. : Deferred MUSCULOSKELETAL: Normal extremities with adequate strength and normal range of motion, no pitting or edema. No clubbing or cyanosis. NEUROLOGICAL: Patient is alert and oriented x 3. Motor and sensory are also intact. Cranial nerves II through XII grossly intact. Symmetrical smile. Normal speech, normal gait. PSYCH: Normal mood, normal affect. SKIN: Warm, Dry, normal turgor, no rashes or lesions noted. Limitations: no limitations Course Vital Signs 03/13/20 03/13/20 20:22 21:45 Temperature 98.2 F 97.9 F Pulse Rate 72 72 Respiratory 18 18 Rate Blood Pressure 150/105 130/88 O2 Sat by Pulse 97 98 Oximetry EKG Findings - EKG Comments: EKG Findings:: Normal sinus rhythm, no signs of acute ischemia. Ventricular rate 73, ID interval 150, QT 380. Medical Decision Making - Medical Decision Making Patient is a 20-year-old female here for chest tightness that has been increasing over the past few days. She is currently being treated for an upper respiratory infection with an antibiotic and steroids. She also had an IUD placed 1 week ago and was sent in by urgent care to rule out a blood clot. Her exam is unremarkable, EKG shows no acute changes. Patient does have slight leukocytosis at 14.8 however this is most likely due to her steroids. Her d- dimer is normal at <0.17. The rest of her blood work is also unremarkable. Patient's chest x-ray shows no acute abnormalities. I discussed these findings with the patient and her symptoms are most likely related to her improving URI. I recommended she finish her medications. She is stable for discharge and she is in agreement with this plan of care. She can follow up with her PCP. Return parameters were discussed with the patient she verbalized understanding. Case discussed with Dr. Barahona. - Lab Data Result diagrams: 03/13/20 20:50 03/13/20 20:50 Lab Results 03/13/20 03/13/20 03/13/20 Range/Units 20:50 20:50 20:50 WBC 14.8 H (3.8-10.6) k/uL RBC 5.56 H (3.80-5.40) m/uL Hgb 14.4 (11.4-16.0) gm/dL Hct 44.7 (34.0-46.0) % MCV 80.5 (80.0-100.0) fL MCH 26.0 (25.0-35.0) pg MCHC 32.3 (31.0-37.0) g/dL RDW 14.0 (11.5-15.5) % Plt Count 421 (150-450) k/uL Neutrophils % 81 % Lymphocytes % 14 % Monocytes % 4 % Eosinophils % 1 % Basophils % 0 % Neutrophils # 12.0 H (1.3-7.7) k/uL Lymphocytes # 2.0 (1.0-4.8) k/uL Monocytes # 0.5 (0-1.0) k/uL Eosinophils # 0.1 (0-0.7) k/uL Basophils # 0.0 (0-0.2) k/uL D-Dimer <0.17 (<0.60) mg/L FEU Sodium 138 (137-145) mmol/L Potassium 4.5 (3.5-5.1) mmol/L Chloride 105 (98-107) mmol/L Carbon Dioxide 25 (22-30) mmol/L Anion Gap 8 mmol/L BUN 12 (7-17) mg/dL Creatinine 0.64 (0.52-1.04) mg/dL Est GFR (CKD-EPI)AfAm >90 (>60 ml/min/1.73 sqM) Est GFR (CKD-EPI)NonAf >90 (>60 ml/min/1.73 sqM) Glucose 121 H (74-99) mg/dL Calcium 10.1 (8.4-10.2) mg/dL Total Bilirubin 0.5 (0.2-1.3) mg/dL AST 19 (14-36) U/L ALT 20 (4-34) U/L Alkaline Phosphatase 101 (38-126) U/L Total Protein 7.7 (6.3-8.2) g/dL Albumin 4.7 (3.5-5.0) g/dL Disposition Clinical Impression: Chest tightness, URI (upper respiratory infection) Disposition: HOME SELF-CARE Condition: Stable Instructions (If sedation given, give patient instructions): Upper Respiratory Infection (ED) Additional Instructions: Please return to the Emergency Department if symptoms worsen or any other concerns. Her workup today is negative for a blood clot. Continue and finish your already prescribed medications. Drink plenty of fluids. Follow-up with PCP as needed. Prescriptions: Albuterol Inhaler [Ventolin Hfa Inhaler] 1 puff INHALATION Q4H PRN #1 puff PRN Reason: Shortness Of Breath Is patient prescribed a controlled substance at d/c from ED?: No Referrals: None,Stated [Primary Care Provider] - 1-2 days
[2020-03-13 21:47] VITALS: BP 130/88; TEMP 97.9
== END 2020-03-13 22:01 | disposition home or self-care (01) ==
LOC: EC 20:19
DX: J06.9 Acute upper respiratory infection, unspecified (principal); R07.89 Other chest pain; D72.829 Elevated white blood cell count, unspecified; Z91.018 Allergy to other foods
CPT/HCPCS: 36415; 71046; 80053; 85025; 85379; 93005; 99285

== ENCOUNTER 2022-08-28 19:15 | Outpatient (CLI) | payer BC, OTHER ==
[2022-08-28 20:01] VITALS: BP 136/85; PULSE 107; RESP 17; TEMP 97.3
--- NOTE | 2022-08-29 10:34 | P.MSEPDOC ---
Presenting Problems - Arrival Data Date of Arrival on Unit: 08/28/22 Time of Arrival on Unit: 19:15 Mode of Transport: Ambulatory - Complaint OB-Reason for Admission/Chief Complaint: Elevated Blood Pressure Comment: Pt presents to triage with c/o increased blood pressure readings on her blood pressure cuff at home after having a panic attack in the grocery store d/t it being "crowded and busy." Medical History - Information : 2 Para: 1 Term: 1 : 0 Abortions: Spontaneous or Elective: 0 Number of Living Children: 1 - Gestational Age Gestational Age by LILIYA (wks/days): 35 Weeks and 2 Days Review of Systems - Review of Systems Constitutional: No problems Breast: No problems ENT: No problems Cardiovascular: No problems Respiratory: No problems Gastrointestinal: No problems Genitourinary: No problems Musculoskeletal: No problems Neurological: No problems Skin: No problems Vital Signs - Temperature Temperature: 97.3 F Temperature Source: Temporal Artery Scan - Pulse Pulse Oximetery Pulse Rate: 107 Pulse Assessment Method: Pulse Oximetry - Respirations Respiratory Rate: 17 Oxygen Delivery Method: Room Air O2 Sat by Pulse Oximetry: 98 - Blood Pressure Right Arm Blood Pressure: 136/85 Blood Pressure Mean: 102 Blood Pressure Source: Automatic Cuff Medical Screen Scoring - Uterine Contractions Intensity: Mild Resting: Soft to palpation - Assessment - Baby A Baseline FHR: 140 Heart Rate - NICHD Category: Category I (Normal) NST: Reactive Physician Notification - Physician Notified Physician Notified Date: 08/28/22 Physician Notified Time: 19:45 Physician: Jennifer Etienne Order Received: Yes - Notification Comment Comment: RN spoke with Dr. Etienne regarding triage pt c/o increased blood pressures at home after having a panic attack in the grocery store. Reported on maternal vital signs WNL, plus 2 reflexes, no clonus, no other s/s of pre- eclampsia and reactive NST. Order received from Dr. Etienne to discharge pt home with education to watch for s/s of pre-eclampsia. Maternal Triage Index - Maternal Triage Index Presenting for scheduled procedure w/no complaint: No - Stat/Priority 1 Stat Priority 1: No - Urgent/Priority 2 Urgent Priority 2: No - Prompt/Priority 3 Prompt Priority 3: No - Non-Urgent/Priority 4 Non-Urgent Priority 4: Yes Criteria Met for Priority 4: Anxiety Disposition - Disposition OB Disposition: Discharge to home, Written follow up instructions reviewed Discharge Date: 08/28/22 Discharge Time: 19:51 I agree with the RN Medical Screening Exam: Yes Case reviewed; plan agreed upon as documented in EMR&OBIX.: Yes Diagnosis: ANXIETY DISORDER, UNSPECIFIED
== END 2022-08-28 19:51 | disposition home or self-care (01) ==
LOC: MERGE 19:15 → FBPOP 19:15
PROVIDERS: ATTEND Obstetrics & Gynecology
DX: O99.343 Other mental disorders complicating pregnancy, third trimester (principal); Z3A.35 35 weeks gestation of pregnancy; F41.9 Anxiety disorder, unspecified; Z91.018 Allergy to other foods
CPT/HCPCS: 59025; 99215

== ENCOUNTER 2022-09-01 12:51 | Outpatient (CLI) | payer BC, OTHER ==
[2022-09-01 14:25] VITALS: BP 131/60; PULSE 95; RESP 17; TEMP 96.6
--- NOTE | 2022-09-03 16:00 | P.MSEPDOC ---
Presenting Problems - Arrival Data Date of Arrival on Unit: 09/01/22 Time of Arrival on Unit: 12:51 Mode of Transport: Ambulatory - Complaint OB-Reason for Admission/Chief Complaint: Possible Onset of Labor, Rule Out SROM Comment: pt presenting to triage with cramping and possible SROM this am Medical History - Information : 2 Para: 1 Term: 1 : 0 Abortions: Spontaneous or Elective: 0 Number of Living Children: 1 - Gestational Age Gestational Age by LILIYA (wks/days): 35 Weeks and 6 Days Review of Systems - Review of Systems Constitutional: No problems Breast: No problems ENT: No problems Cardiovascular: No problems Respiratory: No problems Gastrointestinal: No problems Genitourinary: No problems Musculoskeletal: No problems Neurological: No problems Skin: No problems Vital Signs - Temperature Temperature: 96.6 F Temperature Source: Temporal Artery Scan - Pulse Right Brachial Pulse Rate: 95 Pulse Assessment Method: Automatic Cuff - Respirations Respiratory Rate: 17 Oxygen Delivery Method: Room Air O2 Sat by Pulse Oximetry: 96 - Blood Pressure Right Arm Blood Pressure: 131/60 Blood Pressure Mean: 83 Blood Pressure Source: Automatic Cuff Medical Screen Scoring - Cervical Exam Dilation (cm): 1 Effacement (%): 50 Station: -3 Membranes: Intact - Uterine Contractions Intensity: Mild Resting: Soft to palpation - Assessment - Baby A Baseline FHR: 140 Heart Rate - NICHD Category: Category I (Normal) NST: Reactive Physician Notification - Physician Notified Physician Notified Date: 09/01/22 Physician Notified Time: 14:04 Physician: Jennifer Etienne Order Received: Yes - Notification Comment Comment: amniosure negative, cervical exam 1/thick/-3, appt with Dr. Gates on Wednesday Maternal Triage Index - Maternal Triage Index Presenting for scheduled procedure w/no complaint: No - Stat/Priority 1 Stat Priority 1: No - Urgent/Priority 2 Urgent Priority 2: No - Prompt/Priority 3 Prompt Priority 3: Yes Criteria Met for Priority 3: pt presenting to triage with cramping and possible SROM this am Disposition - Disposition OB Disposition: Triage, Discharge to home, Written follow up instructions reviewed Discharge Date: 09/01/22 Discharge Time: 14:15 I agree with the RN Medical Screening Exam: Yes Case reviewed; plan agreed upon as documented in EMR&OBIX.: Yes Diagnosis: FALSE LABOR BEFORE 37 COMPLETED WEEKS OF GEST, THIRD TRI
== END 2022-09-01 14:15 | disposition home or self-care (01) ==
LOC: FBPOP 12:51 → MERGE 12:51 → FBPOP 14:15
PROVIDERS: ATTEND Obstetrics & Gynecology
DX: O47.03 False labor before 37 completed weeks of gestation, third trimester (principal); Z3A.35 35 weeks gestation of pregnancy; Z91.018 Allergy to other foods; Z79.82 Long term (current) use of aspirin
CPT/HCPCS: 59025; 84112; 99213

== ENCOUNTER 2022-09-24 05:47 | Inpatient (IN) | payer BC, OTHER ==
[2022-09-24] MEDS ORDERED: TRANEXAMIC ACID IN NACL,ISO-OS 1,000 MG in EMPTY BAG 1 BAG IV PRN (06:12)
[2022-09-24] MEDS ORDERED: METHYLERGONOVINE 0.2 MG/ML 1 ML AMP IM PRN (06:12)
[2022-09-24] MEDS ORDERED: miSOPROStoL 200 MCG TAB PO PRN (06:12)
[2022-09-24] MEDS ORDERED: LIDOCAINE 0.5% (PF) 5 MG/ML (50 ML SDV) SQ PRN (06:12)
[2022-09-24] MEDS ORDERED: OXYTOCIN 10 UNIT/ML 1 ML VIAL IM PRN (06:12)
[2022-09-24] MEDS ORDERED: CARBOPROST TROMETHAMINE 250 MCG/ML 1 ML AMP IM PRN (06:12)
[2022-09-24] MEDS ORDERED: TERBUTALINE 1 MG/ML VIAL SQ PRN (06:12)
[2022-09-24] MEDS ORDERED: OXYTOCIN 30 UNITS/500 ML NS 30 UNIT in SALINE 1 500ML.BAG IV SCH ×2 (06:15→12:15)
[2022-09-24] MEDS: LACTATED RINGERS 1,000 ML IV SCH ×2 (06:43→22:11)
[2022-09-24 08:05] LABS: Anisocytosis Slight; Basophils % (A) 0 %; Eosinophils # (A) 0.1 k/uL (0-0.7); Eosinophils % (A) 1 %; HCT 39.4 % (34.0-46.0); Lymphocytes # (A) 2.6 k/uL (1.0-4.8); Lymphocytes % (A) 20 %; MCH 26.8 pg (25.0-35.0); MCHC 33.1 g/dL (31.0-37.0); MCV 80.9 fL (80.0-100.0); Mean Platelet Volume 7.9; Monocytes # (A) 0.5 k/uL (0-1.0); Monocytes % (A) 4 %; Neutrophils # (A) 9.9 k/uL (1.3-7.7); Neutrophils % (A) 74 %; Platelet Count 255 k/uL (150-450); RBC 4.87 m/uL (3.80-5.40); RDW 16.6 % (11.5-15.5); WBC 13.3 k/uL (3.8-10.6)
--- NOTE | 2022-09-24 08:23 | P.HPOB ---
History of Present Illness H&P Date: 09/24/22 Chief Complaint: induction of labor 22 year old presents at 39 weeks 1 day for induction of labor. Her cervix is 3/60/-2 and she is junior irregularly. heart tones 135 with moderate variability and reactive. Review of Systems All systems: negative Constitutional: Denies chills, Denies fever Eyes: denies blurred vision, denies pain Ears, nose, mouth and throat: Denies headache, Denies sore throat Cardiovascular: Denies chest pain, Denies shortness of breath Respiratory: Denies cough Gastrointestinal: Denies abdominal pain, Denies diarrhea, Denies nausea, Denies vomiting Genitourinary: Denies dysuria, Denies hematuria Musculoskeletal: Denies myalgias Integumentary: Denies pruritus, Denies rash Neurological: Denies numbness, Denies weakness Psychiatric: Denies anxiety, Denies depression Endocrine: Denies fatigue, Denies weight change Past Medical History Past Medical History: No Reported History Additional Past Medical History / Comment(s): Obstetric history: First was a vaginal delivery. This is her second she had care with [facility] since the first trimester. Blood type is O+, antibodies negative, rubella immune, hepatitis B negative, RPR nonreactive, GBS negative. History of Any Multi-Drug Resistant Organisms: None Reported Past Surgical History: No Surgical Hx Reported Smoking Status: Never smoker Medications and Allergies Home Medications Medication Instructions Recorded Confirmed Type Citalopram Hydrobromide [CeleXA] 20 mg PO DAILY 05/14/22 09/24/22 History Vit No.179/Iron/Folic 1 each PO DAILY 05/14/22 09/24/22 History [ Tablet] busPIRone HCL [Buspirone HCl] 5 mg PO DAILY 05/14/22 09/24/22 History Aspirin [[place] Aspirin EC] 81 mg PO DAILY 07/19/22 09/24/22 History Ferrous Sulfate [Iron] 80 mg PO DAILY 07/19/22 09/24/22 History Allergies Allergy/AdvReac Type Severity Reaction Status Date / Time strawberry Allergy Rash/Hives Verified 09/10/22 16:24 Exam Osteopathic Statement: *. No significant issues noted on an osteopathic structural exam other than those noted in the History and Physical/Consult. Intake and Output 04/09/24/22 09/24/22 22:59 06:59 14:59 Other: Weight 136.078 kg Heart: Regular rate and rhythm Lungs: Clear to auscultation bilaterally Abdomen: Soft, nontender Extremities: Negative Homans sign Results Result Diagrams: 09/24/22 07:42 Abnormal Lab Results - Last 24 Hours (Table) 09/24/22 Range/Units 07:42 WBC 13.3 H (3.8-10.6) k/uL RDW 16.6 H (11.5-15.5) % Neutrophils # 9.9 H (1.3-7.7) k/uL Assessment and Plan (1) Elective induction of labor planned Current Visit: Yes Status: Acute Code(s): ACW3142 - SNOMED Code(s): 213843157 Plan: 1. induction of labor with amniotomy and pitocin 2. anticipate normal vaginal delivery
[2022-09-24 08:25] VITALS: RESP 16
[2022-09-24] MEDS ORDERED: ROPIVACAINE 5 MG/ML 20 ML AMPULE ONE (10:13)
[2022-09-24] MEDS ORDERED: fentaNYL (PF) 50 MCG/ML 5 ML AMP ONE (10:13)
[2022-09-24] MEDS ORDERED: SODIUM CHLORIDE 0.9% 100 ML BAG ONE (10:13)
[2022-09-24] MEDS ORDERED: ZOLPIDEM 5 MG TAB PO PRN (12:03)
[2022-09-24] MEDS ORDERED: diphenhydrAMINE 50 MG/ML 1 ML VIAL IVP PRN ×2 (12:03)
[2022-09-24] MEDS ORDERED: BENZOCAINE/MENTHOL SPRAY 1 GM/SPRAY AEROSOL TOPICAL PRN (12:03)
[2022-09-24] MEDS ORDERED: ACETAMINOPHEN TAB 325 MG TAB PO PRN (12:03)
[2022-09-24] MEDS ORDERED: diphenhydrAMINE 50 MG CAP PO PRN (12:03)
[2022-09-24] MEDS ORDERED: HYDROCORTISONE 2.5% RECTAL CREAM 30 GM TUBE RECTAL PRN (12:03)
[2022-09-24] MEDS ORDERED: diphenhydrAMINE 25 MG CAP PO PRN (12:03)
[2022-09-24] MEDS ORDERED: LANOLIN CREAM 5 GM TUBE TOPICAL PRN (12:03)
[2022-09-24] MEDS ORDERED: SIMETHICONE 80 MG CHEWABLE PO PRN (12:03)
--- NOTE | 2022-09-24 12:06 | P.PROBDLV ---
Vaginal Delivery Note - . Vaginal Delivery Note: 22 year old presents at 39 weeks 1 day for induction of labor. Her cervix is 3/60/-2 and she is junior irregularly. heart tones 135 with moderate variability and reactive. Pitocin was started and amniotomy performed at 7:42 AM, clear fluid noted. Patient was too uncomfortable and did get an epidural. Her cervix was completely dilated around 1144. Patient pushed and delivered a viable female infant over intact perineum under epidural anesthesia 11:45 AM. Head delivered OA, nuchal cord 2 easily reduced, anterior shoulder delivered gentle downward guidance for by posterior shoulder and rest of body. Nose and mouth bulb suctioned, cord clamped and cut, infant placed on mother's abdomen. Apgars 8, 9, weight 6 lbs. 12 oz. Placenta delivered spontaneously, intact with three-vessel cord at 1147. Vagina, cervix, and perineum were inspected. No lacerations noted. Estimated blood loss 100 mL. Mother and baby in stable condition
[2022-09-24] MEDS: IBUPROFEN 600 MG TAB PO PRN ×2 (12:24→22:00)
[2022-09-24] MEDS: SENNOSIDES-DOCUSATE SODIUM 1 EACH TAB PO SCH (19:50)
[2022-09-25 05:50] LABS: Anisocytosis Slight; Basophils % (A) 0 %; Eosinophils # (A) 0.1 k/uL (0-0.7); Eosinophils % (A) 1 %; HCT 34.6 % (34.0-46.0); HGB 11.5 gm/dL (11.4-16.0); Lymphocytes # (A) 2.7 k/uL (1.0-4.8); Lymphocytes % (A) 25 %; MCH 27.3 pg (25.0-35.0); MCHC 33.4 g/dL (31.0-37.0); MCV 81.6 fL (80.0-100.0); Mean Platelet Volume 7.7; Monocytes # (A) 0.5 k/uL (0-1.0); Monocytes % (A) 5 %; Neutrophils # (A) 7.6 k/uL (1.3-7.7); Neutrophils % (A) 68 %; Platelet Count 208 k/uL (150-450); RBC 4.24 m/uL (3.80-5.40); RDW 16.6 % (11.5-15.5); WBC 11.2 k/uL (3.8-10.6)
--- NOTE | 2022-09-25 08:31 | P.DS ---
Providers Date of admission: 09/24/22 05:47 Expected date of discharge: 09/25/22 Attending physician: Mariana Gates Primary care physician: Stated None - Discharge Diagnosis(es) (1) Elective induction of labor planned Current Visit: Yes Status: Resolved (2) Normal vaginal delivery Current Visit: No Status: Acute Hospital Course: Patient presented for induction of labor at 39 weeks. She underwent a normal vaginal delivery. Post course was uncomplicated. She denies nausea, vomiting, chest pain, shortness of breath or calf pain. Patient will be discharged home day #1 in stable condition to follow-up with me in 6 weeks. Plan - Discharge Summary New Discharge Prescriptions: New Ibuprofen [Motrin] 600 mg PO Q6HR PRN #30 tab PRN Reason: Mild Pain (Scale 1 To 3) No Action Vit No.179/Iron/Folic [ Tablet] 1 each PO DAILY busPIRone HCL [Buspirone HCl] 5 mg PO DAILY Citalopram Hydrobromide [CeleXA] 20 mg PO DAILY Ferrous Sulfate [Iron] 80 mg PO DAILY Aspirin [[place] Aspirin EC] 81 mg PO DAILY Discharge Medication List Citalopram Hydrobromide [CeleXA] 20 mg PO DAILY 05/14/22 [History] Vit No.179/Iron/Folic [ Tablet] 1 each PO DAILY 05/14/22 [History] busPIRone HCL [Buspirone HCl] 5 mg PO DAILY 05/14/22 [History] Aspirin [[place] Aspirin EC] 81 mg PO DAILY 07/19/22 [History] Ferrous Sulfate [Iron] 80 mg PO DAILY 07/19/22 [History] Ibuprofen [Motrin] 600 mg PO Q6HR PRN #30 tab 09/25/22 [Rx] Follow up Appointment(s)/Referral(s): Mariana Gates DO [Doctor of Osteopathic Medicine] - 11/06/22 11:15 am Discharge Disposition: HOME SELF-CARE
[2022-09-25 08:58] VITALS: BP 141/88; PULSE 92; TEMP 98
[2022-09-25] MEDS: SENNOSIDES-DOCUSATE SODIUM 1 EACH TAB PO SCH (08:58)
[2022-09-25] MEDS ORDERED: CITALOPRAM HYDROBROMIDE 20 MG TAB PO SCH (09:00)
[2022-09-25] MEDS ORDERED: busPIRone HCl 5 MG TAB PO SCH (09:00)
[2022-09-25] MEDS: IBUPROFEN 600 MG TAB PO PRN (11:31)
== END 2022-09-25 13:15 | disposition home or self-care (01) | DRG 560 ==
LOC: 4FBP 05:47
PROVIDERS: ADMIT Obstetrics & Gynecology; ATTEND Obstetrics & Gynecology
PROC: 10E0XZZ Delivery of Products of Conception, External Approach (ICD-10-PCS; principal; 2022-09-24)
PROC: 4A0HXCZ Measurement of Products of Conception, Cardiac Rate, External Approach (ICD-10-PCS; 2022-09-24)
PROC: 3E033VJ Introduction of Other Hormone into Peripheral Vein, Percutaneous Approach (ICD-10-PCS; 2022-09-24)
PROC: 10907ZC Drainage of Amniotic Fluid, Therapeutic from Products of Conception, Via Natural or Artificial Opening (ICD-10-PCS; 2022-09-24)
DX: O69.81X0 Labor and delivery complicated by cord around neck, without compression, not applicable or unspecified (principal); Z3A.39 39 weeks gestation of pregnancy; Z37.0 Single live birth
CPT/HCPCS: 85025; 86850; 86900; 86901

== ENCOUNTER 2023-02-05 04:27 | Emergency (ER) | payer BC, OTHER ==
[2023-02-05 05:34] LABS: Basophils % (A) 0 %; Eosinophils # (A) 0.3 k/uL (0-0.7); Eosinophils % (A) 3 %; HCT 39.4 % (34.0-46.0); HGB 13.5 gm/dL (11.4-16.0); Lymphocytes # (A) 1.9 k/uL (1.0-4.8); Lymphocytes % (A) 20 %; MCH 27.8 pg (25.0-35.0); MCHC 34.4 g/dL (31.0-37.0); MCV 80.7 fL (80.0-100.0); Mean Platelet Volume 7.6; Monocytes # (A) 0.4 k/uL (0-1.0); Monocytes % (A) 4 %; Neutrophils # (A) 7.1 k/uL (1.3-7.7); Neutrophils % (A) 72 %; Platelet Count 235 k/uL (150-450); RBC 4.88 m/uL (3.80-5.40); RDW 14.7 % (11.5-15.5); WBC 9.8 k/uL (3.8-10.6)
[2023-02-05 05:46] LABS: INR 0.9 (<1.2); Partial Thromboplastin Time 24.2 sec (22.0-30.0); Prothrombin Time 9.8 sec (9.0-12.0)
[2023-02-05 06:04] LABS: ALT 34 U/L (4-34); AST 28 U/L (14-36); African American GFR (CKD) >90 (>60 ml/min/1.73 sqM); Alkaline Phosphatase 73 U/L (38-126); Anion Gap 10 mmol/L; Blood Urea Nitrogen 8 mg/dL (7-17); Calcium 9.3 mg/dL (8.4-10.2); Carbon Dioxide 21 mmol/L (22-30); Chloride 104 mmol/L (98-107); Glucose 106 mg/dL (74-99); Lipase 74 U/L (23-300); Magnesium 1.8 mg/dL (1.6-2.3); Non-African American GFR(CKD) >90 (>60 ml/min/1.73 sqM); Potassium 4.4 mmol/L (3.5-5.1); Sodium 135 mmol/L (137-145); Total Bilirubin 0.5 mg/dL (0.2-1.3); Total Protein 7.1 g/dL (6.3-8.2)
--- NOTE | 2023-02-05 06:24 | ED ---
Chest Pain HPI - General Chief Complaint: Chest Pain Stated Complaint: Shortness of breath, Chest Pain Time Seen by Provider: 02/05/23 04:35 Source: patient, family Mode of arrival: ambulatory Limitations: no limitations - History of Present Illness Initial Comments: 22-year-old female past medical history of asthma who presents emergency department reporting chest pain. States that yesterday around 6:15 PM she began having an asthma attack. She used her inhaler and states that she did have resolution in her symptoms. She does admit to a recent upper respiratory infection however her symptoms have been improving. He denies any fevers, chills or productive cough. Since the asthma attack she has had some left-sided chest pain. States that it is pleuritic in nature and radiates to her left back. She did not take any medications for the pain. Denies history of DVT or PE. No calf pain or swelling. Denies history of cardiac disease. No family history of sudden cardiac . Pain has remained constant and therefore the patient presented to the emergency room for evaluation. No other alleviating, precipitating or modifying factors - Related Data Home Medications Medication Instructions Recorded Confirmed Citalopram Hydrobromide [CeleXA] 20 mg PO DAILY 05/14/22 09/24/22 Vit No.179/Iron/Folic 1 each PO DAILY 05/14/22 09/24/22 [ Tablet] busPIRone HCL [Buspirone HCl] 5 mg PO DAILY 05/14/22 09/24/22 Aspirin [[place] Aspirin EC] 81 mg PO DAILY 07/19/22 09/24/22 Ferrous Sulfate [Iron] 80 mg PO DAILY 07/19/22 09/24/22 Previous Rx's Medication Instructions Recorded Ibuprofen [Motrin] 600 mg PO Q6HR PRN #30 tab 09/25/22 Allergies Allergy/AdvReac Type Severity Reaction Status Date / Time strawberry Allergy Rash/Hives Verified 09/10/22 16:24 Review of Systems ROS Statement: Those systems with pertinent positive or pertinent negative responses have been documented in the HPI. ROS Other: All systems not noted in ROS Statement are negative. Past Medical History Past Medical History: No Reported History Additional Past Medical History / Comment(s): Obstetric history: First was a vaginal delivery. This is her second she had care with me since the first trimester. Blood type is O+, antibodies negative, rubella immune, hepatitis B negative, RPR nonreactive, GBS negative. History of Any Multi-Drug Resistant Organisms: None Reported Past Surgical History: No Surgical Hx Reported Past Anesthesia/Blood Transfusion Reactions: No Reported Reaction Past Psychological History: No Psychological Hx Reported Smoking Status: Never smoker Past Alcohol Use History: None Reported Past Drug Use History: None Reported - Past Family History Mother History Unknown: Yes General Exam Limitations: no limitations General appearance: alert, in no apparent distress Head exam: Present: atraumatic, normocephalic, normal inspection Eye exam: Present: normal appearance, PERRL, EOMI. Absent: scleral icterus, conjunctival injection, periorbital swelling ENT exam: Present: normal exam, mucous membranes moist Neck exam: Present: normal inspection. Absent: tenderness, meningismus, lymphadenopathy Respiratory exam: Present: normal lung sounds bilaterally. Absent: respiratory distress, wheezes, rales, rhonchi, stridor Cardiovascular Exam: Present: regular rate, normal rhythm, normal heart sounds. Absent: systolic murmur, diastolic murmur, rubs, gallop, clicks GI/Abdominal exam: Present: soft, normal bowel sounds. Absent: distended, tenderness, guarding, rebound, rigid Extremities exam: Present: normal inspection, full ROM, normal capillary refill. Absent: tenderness, pedal edema, joint swelling, calf tenderness Back exam: Present: normal inspection Neurological exam: Present: alert, oriented X3, CN II-XII intact Psychiatric exam: Present: normal affect, normal mood Skin exam: Present: warm, dry, intact, normal color. Absent: rash Course Vital Signs 02/05/23 04:33 Temperature 97.7 F Pulse Rate 100 Respiratory 18 Rate Blood Pressure 132/78 O2 Sat by Pulse 99 Oximetry Chest Pain MDM - MDM Was pt. sent in by a medical professional or institution (, PA, HAND II THERMAL CUTTER, urgent care, hospital, or prison...) When possible be specific @ -No Did you speak to anyone other than the patient for history (EMS, parent, family, police, friend...)? What history was obtained from this source @ -No Did you review nursing and triage notes (agree or disagree)? Why? @ -I reviewed and agree with nursing and triage notes Were old charts reviewed (outside hosp., previous admission, EMS record, old EKG, old radiological studies, urgent care reports/EKG's, prison records)? Report findings @ -No old charts were reviewed Differential Diagnosis (chest pain, altered mental status, abdominal pain women, abdominal pain men, vaginal bleeding, weakness, fever, dyspnea, syncope, headache, dizziness, GI bleed, back pain, seizure, CVA, palpatations, mental health, musculoskeletal)? @ -Differential Chest Pain: Stable Angina, Unstable Angina, STEMI, NSTEMI Aortic Dissection, Pneumothorax, Musculoskeletal, Esophageal Spasm GERD, Cholecystitis, Pancreatitis, Zoster, this is not meant to be an all-inclusive list. EKG interpreted by me (3pts min.). @ -Yes and demonstrates sinus rhythm with a rate of 87. GA interval 174. QRS 88. QTC 392. No acute ST segment elevations or depressions X-rays interpreted by me (1pt min.). @ -Yes and demonstrates no acute intrathoracic process CT interpreted by me (1pt min.). @ -None done U/S interpreted by me (1pt. min.). @ -None done What testing was considered but not performed or refused? (CT, X-rays, U/S, labs)? Why? @ -None What meds were considered but not given or refused? Why? @ -I did offer her pain meds however the patient refused Did you discuss the management of the patient with other professionals (professionals i.e. , PA, HAND II THERMAL CUTTER, lab, RT, psych nurse, social service liaison, caustic cresylate shift superintendent, teacher, surveillance officer, case management specialist)? Give summary @ -No Was smoking cessation discussed for >3mins.? @ -No Was critical care preformed (if so, how long)? @ -No Were there social determinants of health that impacted care today? How? (Homelessness, low income, unemployed, alcoholism, drug addiction, transportati on, low edu. Level, literacy, decrease access to med. care, intermediate, rehab)? @ -No Was there de-escalation of care discussed even if they declined (Discuss DNR or withdrawal of care, Hospice)? DNR status @ -No What co-morbidities impacted this encounter? (DM, HTN, Smoking, COPD, CAD, Cancer, CVA, ARF, Chemo, Hep., AIDS, mental health diagnosis, sleep apnea, morbid obesity)? @ -None Was patient admitted / discharged? Hospital course, mention meds given and route, prescriptions, significant lab abnormalities, going to OR and other pertinent info. @ -Upon arrival patient was placed into room 6. A thorough history and physical exam was performed. IV access was established laboratory studies were conducted. 12-lead EKG is obtained. D-dimer is negative. Troponin is negative. Chest x-ray demonstrates no acute process. Results are discussed with the patient. Patient will be discharged home at this time. Instructed to take Motrin 600 mg for suspected pleurisy. Follow up with her primary care doctor within the next week and return for new worsening symptoms. Patient was agreeable to this plan she was discharged in stable condition Undiagnosed new problem with uncertain prognosis? @ -No Drug Therapy requiring intensive monitoring for toxicity (Heparin, Nitro, Insulin, Cardizem)? @ -No Were any procedures done? @ -No Diagnosis/symptom? @ -Acute pleuritic chest pain, possible pleurisy Acute, or Chronic, or Acute on Chronic? @ -Acute Uncomplicated (without systemic symptoms) or Complicated (systemic symptoms)? @ -Complicated Side effects of treatment? @ -No Exacerbation, Progression, or Severe Exacerbation? @ -No Poses a threat to life or bodily function? How? (Chest pain, [place], [place], pneumonia, PE, COPD, DKA, ARF, appy, cholecystitis, CVA, Diverticulitis, Homicidal, Suicidal, threat to staff... and all critical care pts) @ -No Disposition Clinical Impression: Chest pain Disposition: HOME SELF-CARE Condition: Stable Instructions (If sedation given, give patient instructions): Chest Pain (ED) Additional Instructions: Please take Motrin 600 mg every 6 hours. Follow-up with your doctor within the next week. Return to the emergency room for any new or worsening symptoms. Is patient prescribed a controlled substance at d/c from ED?: No Referrals: Andrey Rizvi [Primary Care Provider] - 1-2 days Time of Disposition: 06:24
[2023-02-05 07:01] VITALS: BP 124/78; PULSE 84; RESP 19; TEMP 97.9
--- NOTE | 2023-02-05 07:01 | XR ---
EXAMINATION TYPE: XR chest 2V DATE OF EXAM: 02/05/2023 6:03 AM COMPARISON: Chest radiographs from 03/13/2020 TECHNIQUE: XR chest 2V Frontal and lateral views of the chest. CLINICAL INDICATION:Female, 22 years old with history of Cough/pain; FINDINGS: Lungs/Pleura: There is no evidence of pleural effusion, focal consolidation, or pneumothorax. Pulmonary vascularity: Mild pulmonary vascular congestion. Heart/mediastinum: Cardiomediastinal silhouette is unremarkable. Musculoskeletal: No acute osseous pathology. IMPRESSION: Mild pulmonary vascular congestion without focal consolidation.
== END 2023-02-05 06:50 | disposition home or self-care (01) ==
LOC: EC 04:27
DX: R07.89 Other chest pain (principal); Z91.018 Allergy to other foods
CPT/HCPCS: 36415; 71046; 80053; 83690; 83735; 84484; 85025; 85379; 85610; 85730; 99285

== ENCOUNTER 2023-12-24 19:08 | Emergency (ER) | payer OTHER ==
[2023-12-24 19:29] VITALS: TEMP 98.9
[2023-12-24] MEDS: IPRATROPIUM-ALBUTEROL 3 ML NEB INHALATION STA (20:45)
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
[2023-12-24 22:40] VITALS: BP 134/86; PULSE 100; RESP 20
== END 2023-12-24 22:54 | disposition home or self-care (01) ==
LOC: EC 19:08
DX: J70.5 Respiratory conditions due to smoke inhalation (principal); J45.909 Unspecified asthma, uncomplicated; Z91.018 Allergy to other foods
CPT/HCPCS: 71046; 93005; 99285